=== PATIENT | male | born 1950 | race Caucasian/White ===

== ENCOUNTER 2017-02-25 10:27 | Outpatient (CLI) | payer OTHER ==
--- NOTE | 2017-02-25 12:14 | RAD ---
LUMBAR SPINE THREE VIEWS: History: 66-year-old male with right hip pain and right leg pain. FINDINGS: Severe multilevel disc osteophytosis and facet arthrosis, evidence for spondylosis. No evidence for a bnormal translation between flexion and extension. IMPRESSION: Severe spondylosis. No abnormal translation between flexion and extension. POS: [facility]
--- NOTE | 2017-02-25 12:23 | RAD ---
RIGHT HIP TWO VIEWS: History: 66-year-old male with right hip pain and right leg pain. Comparison: 03-14-15 FINDINGS: Total right hip replacement. There appears to be some patchy bony demineralization adjacent to the in tertrochanteric portion of the femur adjacent to the prosthesis. This is a nonspecific finding. If th ere is concern for loosening or infection a follow up bone scan might be of benefit. IMPRESSION: Total right hip replacement without fracture or periprosthetic dislocation. Patchy bone demineralizat ion in the intertrochanteric portion of the femur adjacent to the prosthesis which is nonspecific but can be seen in cases of loosening or infection. If that is a clinical concern, follow up bone scan m ight be of benefit. POS: [facility]
--- NOTE | 2017-02-25 15:20 | MRI ---
NONCONTRAST ENHANCED MRI IMAGES LUMBAR SPINE: History: Right hip pain for several months. Lumbar radiculopathy. M54.16 Technique: Multiplanar, multisequence noncontrast enhanced MRI images of the lumbar spine obtained. FINDINGS: No evidence of periaortic lymphadenopathy is seen. T11-12: Mild facet hypertrophy is seen bilaterally. No significant degree of central or neural forami nal narrowing is seen. T12-L1: Mild facet hypertrophy is seen. The central canal and neural foramen are patent. L1-2: Moderate bilateral facet and ligamentum flavum hypertrophy is seen. No significant degree of ce ntral or neural foraminal narrowing is seen. L2-3: Disc desiccation is seen. There is a broad based disc osteophyte complex centrally compressing the thecal sac resulting in moderate to severe central and right paracentral spinal stenosis. The dis c osteophyte complex is more prominent in the right L2-3 lateral recess region. There is moderate naren ateral neural foraminal narrowing seen. L3-4: Disc desiccation is seen. There is a broad based disc osteophyte complex centrally, extending i nto the left L3-4 lateral recess and neural foramen. This results in severe central and left L3-4 lat eral recess stenosis. There is also moderate to severe left L3-4 neural foraminal narrowing and moder ate right sided neural foraminal narrowing due to facet hypertrophic changes. L4-5: Disc desiccation is seen. There is broad based disc osteophyte complex centrally extending into the right L4-5 lateral recess and neural foraminal region. This results in severe right L4-5 and lef t L4-5 neural foraminal narrowing. There is disc space height loss. There is moderate to severe centr al and severe right L4-5 lateral recess stenosis. L5-S1: Disc desiccation is seen. There is a disc osteophyte complex centrally compressing the thecal sac resulting in a moderate degree of central and neural foraminal narrowing. IMPRESSION: Severe left L3-4 and right L4-5 central and paracentral spinal stenosis. Multilevel neural foraminal narrowing is also present as described above. Multilevel mid and lower lumbar facet degenerative richards ges and hypertrophy is seen. POS: [facility]
== END 2017-02-25 10:28 | disposition home or self-care (01) ==
LOC: TBSIIMAG 10:27
PROVIDERS: ATTEND Neurological Surgery
DX: M47.26 Other spondylosis with radiculopathy, lumbar region (principal); M48.061 Spinal stenosis, lumbar region without neurogenic claudication; Z96.641 Presence of right artificial hip joint
CPT/HCPCS: 72100; 72148

== ENCOUNTER 2017-03-13 08:13 | Outpatient (CLI) | payer MEDICARE ==
[2017-03-13 10:30] LABS: Hematocrit 39.9 % (42.0-52.0); Mean Platelet Volume 5.9 fL (7.4-10.4); Red Blood Cell (RBC) Count 4.38 mill/uL (4.70-6.10); White Blood Cell (WBC) Count 6.7 thou/uL (4.8-10.8)
[2017-03-13 11:08] LABS: Anion Gap 14 mmol/L (10-20); BUN (Urea Nitrogen) 17 mg/dL (8.4-25.7); Calc. Creatinine Clearance 0 mL/min (70-130); Calcium 9.6 mg/dL (7.8-10.44); Carbon Dioxide 23 mmol/L (23-31); Chloride 101 mmol/L (98-107); Estimated GFR-MDRD 75
--- NOTE | 2017-03-13 15:55 | EKG ---
Test Reason : Blood Pressure : / mmHG Vent. Rate : 076 BPM Atrial Rate : 076 BPM P-R Int : 144 ms QRS Dur : 076 ms QT Int : 378 ms P-R-T Axes : 026 013 040 degrees QTc Int : 425 ms Normal sinus rhythm Normal ECG When compared with ECG of 07-MAR-2015 09:11, No significant change was found Confirmed by ANNA OROPEZA ([id number]) on 03/13/2017 3:54:58 PM Referred By: CATRACHITO Confirmed By:ANNA OROPEZA
== END 2017-03-13 08:14 | disposition home or self-care (01) ==
LOC: LABBT 08:13
PROVIDERS: ATTEND Neurological Surgery
DX: Z01.818 Encounter for other preprocedural examination (principal); M48.061 Spinal stenosis, lumbar region without neurogenic claudication
CPT/HCPCS: 80048; 85027; 93005; 93010

== ENCOUNTER 2017-03-17 08:11 | Observation (INO) | payer MEDICARE ==
[2017-03-13 08:48] VITALS: BMI 29.5
[2017-03-17] MEDS ORDERED: CEFAZOLIN/Water 2 GM/20 ML SYRINGE ONE (11:23)
[2017-03-17] MEDS ORDERED: Fentanyl 250 MCG/5 ML VIAL ONE (12:17)
[2017-03-17] MEDS ORDERED: Thrombin 5000 UNITS/5 ML VIAL ONE (12:30)
[2017-03-17] MEDS ORDERED: Sodium Chloride 0.9% 0 ML ONE (12:30)
[2017-03-17] MEDS ORDERED: Fentanyl 100 MCG/2 ML VIAL ONE (14:57)
[2017-03-17] MEDS ORDERED: Promethazine HCl 25 MG/ML VIAL SLOW IVP PRN (14:58)
[2017-03-17] MEDS ORDERED: Ondansetron HCl/PF 4 MG/2 ML Vial IVP PRN (14:58)
[2017-03-17] MEDS ORDERED: Promethazine HCl 25 MG/ML VIAL IM PRN ×2 (14:58→15:55)
[2017-03-17] MEDS ORDERED: HYDROmorphone 0.5 MG/0.5 ML SYRINGE ONE ×3 (15:20→15:55)
[2017-03-17] MEDS ORDERED: Ondansetron HCl/PF 4 MG/2 ML Vial ONE (15:33)
[2017-03-17] MEDS ORDERED: Glycopyrrolate 0.2 MG/ML 5 ML SYRINGE ONE (15:33)
[2017-03-17] MEDS ORDERED: PHENYLEPHRINE-NS 100 MCG/ML 10 ML SYRINGE ONE (15:33)
[2017-03-17] MEDS ORDERED: Dexamethasone 20 MG/5 ML VIAL ONE (15:33)
[2017-03-17] MEDS ORDERED: Lidocaine 1% PF 5 ML VIAL ONE (15:33)
[2017-03-17] MEDS ORDERED: Propofol 200 MG/20 ML VIAL ONE (15:33)
[2017-03-17] MEDS ORDERED: HYDROmorphone 2 MG/ML VIAL SLOW IVP PRN (15:37)
--- NOTE | 2017-03-17 15:46 | OP ---
DATE OF PROCEDURE: 03/17/2017 SURGEON: Denny Donahue M.D. [employer] MACHINE OPERATOR: Yong PROCEDURE: L2 through S1 laminectomy. PROCEDURE IN DETAIL: The patient was brought into the operating room, intubated. He was rolled in t he prone position on gel-filled chest rolls. Incision was made exposing the sacrum through L2 and ou r level was confirmed by x-ray. We performed complete L5, complete L4, complete L3, and inferior L2 laminectomies, and then performed L5-S1 through L2-3 laminectomy. After complete decompression was s ecured, the wound was extensively irrigated, immaculate hemostasis was secured. Vancomycin powder wa s applied, and the wound was closed in anatomic layers.
[2017-03-17] MEDS ORDERED: Promethazine HCl 12.5 MG SUPP PR PRN (15:55)
[2017-03-17] MEDS ORDERED: diphenhydrAMINE 25 MG CAP PO PRN (15:55)
[2017-03-17] MEDS ORDERED: Mag-Al 1200 mg/1200 mg/30 ML UDCUP PO PRN (15:55)
[2017-03-17] MEDS ORDERED: Milk Of Magnesia 30 ML UDCUP PO PRN (15:55)
[2017-03-17] MEDS ORDERED: tiZANidine HCl 4 MG TAB PO PRN (15:55)
[2017-03-17] MEDS ORDERED: HYDROcodone/Acetaminophen 10/325 mg Tablet PO PRN ×2 (15:55)
[2017-03-17] MEDS ORDERED: diphenhydrAMINE 50 MG/ML VIAL IVP PRN (15:55)
[2017-03-17] MEDS ORDERED: Ondansetron HCl/PF 4 MG/2 ML Vial IM PRN (15:55)
[2017-03-17] MEDS ORDERED: Ketorolac Tromethamine 30 MG/ML VIAL ONE (15:59)
[2017-03-17] MEDS ORDERED: Morphine 4 MG/ML VIAL SLOW IVP PRN ×2 (16:01)
[2017-03-17] MEDS ORDERED: Promethazine HCl 25 MG/ML VIAL ONE (16:49)
[2017-03-17] MEDS: Ketorolac Tromethamine 30 MG/ML VIAL IVP SCH ×2 (18:54→23:16)
[2017-03-17] MEDS ORDERED: FLU VACC TS2017-18 (>65YR) 0.5 ML SYRINGE IM ONE (19:30)
[2017-03-17] MEDS: Sodium Chloride 0.9% 1,000 ML IV SCH (19:39)
[2017-03-17] MEDS: CEFAZOLIN/Water 2 GM/20 ML SYRINGE SLOW IVP SCH (20:27)
[2017-03-18] MEDS: CEFAZOLIN/Water 2 GM/20 ML SYRINGE SLOW IVP SCH (04:12)
[2017-03-18] MEDS: Ketorolac Tromethamine 30 MG/ML VIAL IVP SCH ×2 (04:12→12:27)
[2017-03-18] MEDS: Sodium Chloride 0.9% 1,000 ML IV SCH (04:24)
[2017-03-18 12:23] VITALS: BP 126/75; TEMP 98.1
--- NOTE | 2017-03-19 01:59 | DIS ---
HOSPITAL COURSE: The patient is a 66-year-old male status post L2-S1 laminectomy for lumba r stenosis. Intraoperatively, the patient had some bleeding and required BECCA drain placement. I vaughn tored the output and this decreased over time. The patient's BECCA was removed in the following day. H is incision remained dry, soft. The patient's pain was well controlled with p.o. medication. He had been ambulatory through the department. He has 5/5 strength throughout his extremities and no sensa tion changes. He was tolerating his diet. He was voiding appropriately. The patient dismissed to [facility]. He was provided scripts with Tylenol No. 3 and Zanaflex. We will plan to see the patient and yehuda haq in 2 weeks with x-rays. I discussed home care precautions and resume to reach out to us soon er.
== END 2017-03-18 15:00 | disposition home or self-care (01) ==
LOC: SDC 08:11 → SURG A 11:40
PROVIDERS: ADMIT Neurological Surgery; ATTEND Neurological Surgery
PROC: 00NY0ZZ Release Lumbar Spinal Cord, Open Approach (ICD-10-PCS; principal; 2017-03-17)
DX: M48.061 Spinal stenosis, lumbar region without neurogenic claudication (principal); I10 Essential (primary) hypertension; E78.5 Hyperlipidemia, unspecified; F17.220 Nicotine dependence, chewing tobacco, uncomplicated; G89.29 Other chronic pain; M54.9 Dorsalgia, unspecified; M19.90 Unspecified osteoarthritis, unspecified site; Z88.5 Allergy status to narcotic agent; Z79.899 Other long term (current) drug therapy; Z90.89 Acquired absence of other organs; Z96.653 Presence of artificial knee joint, bilateral; Z96.641 Presence of right artificial hip joint; Z98.890 Other specified postprocedural states
CPT/HCPCS: 63017; 76001; 90732; 96374 ×3; 96375; 96376 ×2; G0008; G0009; G0378; Q2036; 90471; 90682; A4216; J1100; J1170; J1885; J2001; J2405; J2550; J2704; J3010; J3370; J3490

== ENCOUNTER 2018-07-23 00:06 | Outpatient (CLI) | payer MEDICARE ==
[2018-07-23 10:32] LABS: Hemoglobin 12.8 g/dL (14.0-18.0); Mean Corpuscular HGB CONC 33.4 g/dL (32.0-36.0); Mean Corpuscular Hemoglobin 30.3 pg (27.0-31.0); Mean Corpuscular Volume 90.7 fL (78.0-98.0); Mean Platelet Volume 6.4 fL (7.4-10.4); Platelet Count 291 thou/uL (130-400); RBC Distribution Width 11.3 % (11.5-14.5); Red Blood Cell (RBC) Count 4.21 mill/uL (4.70-6.10); White Blood Cell (WBC) Count 7.5 thou/uL (4.8-10.8)
[2018-07-23 10:57] LABS: Anion Gap 14 mmol/L (10-20); BUN (Urea Nitrogen) 11 mg/dL (8.4-25.7); Calc. Creatinine Clearance 0 mL/min (70-130); Calcium 9.4 mg/dL (7.8-10.44); Carbon Dioxide 23 mmol/L (23-31); Chloride 103 mmol/L (98-107); Estimated GFR-MDRD 72; Glucose 201 mg/dL (80-115); Potassium 4.1 mmol/L (3.5-5.1); Sodium 136 mmol/L (136-145)
== END 2018-07-23 00:07 | disposition home or self-care (01) ==
LOC: LABBT 00:06
PROVIDERS: ATTEND Neurological Surgery
DX: Z01.818 Encounter for other preprocedural examination (principal); M54.16 Radiculopathy, lumbar region
CPT/HCPCS: 80048; 85027; 93005; 93010

== ENCOUNTER 2018-07-23 09:30 | Inpatient (IN) | payer MEDICARE ==
[2018-07-23 09:16] VITALS: BMI 30.1
[2018-07-27] MEDS ORDERED: CEFAZOLIN 1 GM VIAL ONE (06:11)
[2018-07-27] MEDS ORDERED: Sodium Chloride 0.9% 10 ML ONE (06:39)
[2018-07-27] MEDS ORDERED: Fentanyl 250 MCG/5 ML VIAL ONE (06:56)
[2018-07-27] MEDS ORDERED: Fentanyl 100 MCG/2 ML VIAL ONE ×4 (08:41→09:40)
[2018-07-27] MEDS ORDERED: Promethazine HCl 25 MG/ML VIAL SLOW IVP PRN (08:56)
[2018-07-27] MEDS ORDERED: Promethazine HCl 25 MG/ML VIAL IM PRN ×2 (08:56→11:37)
[2018-07-27] MEDS ORDERED: Ondansetron HCl/PF 4 MG/2 ML Vial IVP PRN (08:56)
[2018-07-27] MEDS ORDERED: Promethazine HCl 25 MG/ML VIAL ONE (09:25)
[2018-07-27] MEDS ORDERED: hydrALAZINE 20 MG/ML VIAL ONE (09:35)
[2018-07-27] MEDS ORDERED: Rocuronium Bromide 10 MG/ML (10ML VIAL) ONE (11:12)
[2018-07-27] MEDS ORDERED: Lidocaine 1% PF 5 ML VIAL ONE (11:12)
[2018-07-27] MEDS ORDERED: Glycopyrrolate 0.2 MG/ML 5 ML SYRINGE ONE (11:12)
[2018-07-27] MEDS ORDERED: PROPOFOL 200 MG/20 ML VIAL ONE (11:12)
[2018-07-27] MEDS ORDERED: PHENYLEPHRINE-NS 100 MCG/ML 10 ML SYRINGE ONE (11:12)
[2018-07-27] MEDS ORDERED: Ondansetron PF 4 MG/2 ML Vial ONE (11:12)
[2018-07-27] MEDS ORDERED: Ketorolac Tromethamine 30 MG/ML VIAL ONE (11:12)
[2018-07-27] MEDS ORDERED: traMADol HCl 50 MG TAB PO PRN ×2 (11:37)
[2018-07-27] MEDS ORDERED: Mag-Al 1200 mg/1200 mg/30 ML UDCUP PO PRN (11:37)
[2018-07-27] MEDS ORDERED: Cyclobenzaprine 10 MG TAB PO PRN (11:37)
[2018-07-27] MEDS ORDERED: Meperidine HCl/PF 25 MG/ML VIAL SLOW IVP PRN (11:37)
[2018-07-27] MEDS ORDERED: HYDROcodone/Acetaminophen 10/325 mg Tablet PO PRN ×2 (11:37)
[2018-07-27] MEDS ORDERED: Ondansetron PF 4 MG/2 ML Vial IM PRN (11:37)
[2018-07-27] MEDS ORDERED: diphenhydrAMINE 25 MG CAP PO PRN (11:37)
[2018-07-27] MEDS ORDERED: diphenhydrAMINE 50 MG/ML VIAL IVP PRN (11:37)
[2018-07-27] MEDS ORDERED: Promethazine 25 MG TAB PO PRN (11:37)
[2018-07-27] MEDS ORDERED: Promethazine HCl 12.5 MG SUPP PR PRN (11:37)
[2018-07-27] MEDS ORDERED: Milk Of Magnesia 30 ML UDCUP PO PRN (11:37)
[2018-07-27] MEDS: Sodium Chloride 0.9% 1,000 ML IV SCH (11:48)
[2018-07-27] MEDS: CEFAZOLIN 2 GM in Premix Bag 1 BAG IVPB SCH (14:58)
--- NOTE | 2018-07-27 15:19 | OP ---
DATE OF PROCEDURE: 07/27/2018 DRYWALL FOREMAN: Kenyetta. PROCEDURES PERFORMED: L4-L5 and L5-S1 right-sided laminectomy, facetectomy, and foraminotomies, interbody arthrodesis, intervertebral biomechanical device, local morselized autograft, demineralized bone matrix, posterolateral arthrodesis, pedicle screw instrumentation at L4-L5 and at L5-S1. DESCRIPTION OF PROCEDURE: The patient was brought to the operating room and intubated. He was rolled in a prone position on gel-filled chest rolls. An incision was made exposing L4 through S1, the level was confirmed by x-ray. We dissected through the prior scar tissue and performed a right L4-L5 laminectomy, facetectomy, and foraminotomy. We completely decompressed the right L4 and right L5 and right S1. Next, the disks themselves were incised and debrided for the purpose of arthrodesis, and appropriate-sized intervertebral biomechanical PEEK device was brought into the field, filled with demineralized bone matrix and local morselized autograft, and tapped in place securely at L4-L5 and at L5-S1. Next, pedicle screws were placed at right L4 and right L5 and right S1 using lateral fluoroscopic guidance. The noe was secured between these screws connected by nuts, which were final tightened. The wound was then extensively irrigated, and maximum hemostasis was secured. Combination of demineralized bone matrix and local morselized autograft was laid over the left lamina and posterolateral surfaces for the purpose of arthrodesis. Vancomycin powder was applied, and the wound was then closed in anatomic layers. Job ID: [id number]
[2018-07-27] MEDS ORDERED: Dexamethasone 4 mg/ml Vial SLOW IVP SCH (17:15)
[2018-07-28] MEDS: CEFAZOLIN 2 GM in Premix Bag 1 BAG IVPB SCH (00:21)
[2018-07-28] MEDS: Sodium Chloride 0.9% 1,000 ML IV SCH (00:21)
[2018-07-28 08:13] VITALS: BP 118/71; TEMP 98.6
--- NOTE | 2018-07-28 09:05 | DIS ---
DATE OF ADMISSION: 07/27/2018 DATE OF DISCHARGE: 07/28/2018 DISCHARGE SUMMARY: The patient is a 68-year-old male status post L4-L5 and L5-S1 decompression and fusion. Following the surgery, he was transitioned to the Med/Surg floor, where his pain has been well-controlled with p.o. medication, he has been tolerating regular diet, and he is voiding appropriately. The patient did receive a dose of tramadol early on in this admission and he reported some mild swelling of his tongue after this event. He was treated with p.o. Benadryl and IV Decadron with resolution of the symptoms. He has had no difficulty swallowing or respiratory distress. We discussed the importance of no longer taking tramadol in the future. He has tolerated the [place] without any difficulty. The patient is sitting up comfortably, awake, alert, in no acute distress. He has free active range of motion of all extremities. No focal motor weakness or reflex asymmetry. His incision is dry and intact. We will plan to dismiss him to home. I have discussed home care and precautions. We will follow up with the patient in 2 weeks. Job ID: [id number]
== END 2018-07-28 11:45 | disposition home or self-care (01) | DRG 460 ==
LOC: SURG A 07-27 05:55
PROVIDERS: ADMIT Neurological Surgery; ATTEND Neurological Surgery
PROC: 0SG10AJ Fusion of 2 or more Lumbar Vertebral Joints with Interbody Fusion Device, Posterior Approach, Anterior Column, Open Approach (ICD-10-PCS; principal; 2018-07-27)
DX: M54.16 Radiculopathy, lumbar region (principal)
CPT/HCPCS: 76000; C1713; C1768; J0360; J0690; J1100; J1200; J1885; J2001; J2405; J2550; J2704; J3010; J3370; J3490

== ENCOUNTER 2018-08-12 13:19 | Outpatient (CLI) | payer MEDICARE ==
--- NOTE | 2018-08-12 14:03 | RAD ---
LUMBAR SPINE RADIOGRAPHS TWO VIEWS: 08/12/2018 PROVIDED CLINICAL HISTORY: Postop. COMPARISON: 02/25/2007 FINDINGS: Five [id number] lumbar-type vertebral bodies are again noted. Lumbar alignment appears normal. Interval placement of unilateral pedicle screws from L4 through S1. Intervertebral disk devices are seen at L4-L5 and at L5-S1. Disk space height loss and endplate degenerative change are again noted at L2-L3 and at L3-L4. Vascular calcification is noted. Partially visualized changes of right hip arthroplasty. Cutaneous deshaun project in the midline. IMPRESSION: As above. POS: [facility]
== END 2018-08-12 13:20 | disposition home or self-care (01) ==
LOC: TBSIIMAG 13:19
PROVIDERS: ATTEND Neurological Surgery
DX: M47.26 Other spondylosis with radiculopathy, lumbar region (principal); Z96.641 Presence of right artificial hip joint; Z98.890 Other specified postprocedural states
CPT/HCPCS: 72100

== ENCOUNTER 2018-12-22 12:57 | Outpatient (CLI) | payer MEDICARE ==
--- NOTE | 2018-12-22 13:33 | RAD ---
LUMBAR SPINE 2 VIEWS: Date: 12/22/18 INDICATION: Lumbar radiculopathy. COMPARISON: 09/24/18. FINDINGS: Pedicle screws are seen on the right at L4-L5 and S1. Disc implants at both of these levels again not ed. Degenerative changes noted throughout the lumbar spine with osteophytes and disc narrowing. Facet hypertrophy. No interval change from prior exam. IMPRESSION: Stable postoperative and degenerative changes of lumbar spine. POS: [facility]
== END 2018-12-22 12:58 | disposition home or self-care (01) ==
LOC: TBSIIMAG 12:57
PROVIDERS: ATTEND Neurological Surgery
DX: M47.26 Other spondylosis with radiculopathy, lumbar region (principal); Z98.890 Other specified postprocedural states
CPT/HCPCS: 72100